=== PATIENT | female | born 1950 | race Caucasian/White ===

== ENCOUNTER 2024-11-11 08:12 | Outpatient (CLI) | payer MEDICARE | END 2024-11-11 08:13 | disposition home or self-care (01) | LOC: CSHSLEEP 08:12 | PROVIDERS: ATTEND Family Medicine | DX: G47.33 Obstructive sleep apnea (adult) (pediatric) (principal); R53.83 Other fatigue; R51.9 Headache, unspecified | CPT/HCPCS: 95800 ==